=== PATIENT | female | born 1960 | race Caucasian/White ===

== ENCOUNTER → 2016-10-28 | Outpatient (CLI) | payer BC ==
[~2016-10-28] MED LIST: AMLO-114 PO; ASCO500T3 PO; ASPI81TA28 PO; ATOR-24 PO; CARV25TA PO; CHOL100010 PO; CIPR-255 PO; CYAN10004 PO; GLC/500 PO; GLYB3TAB3 PO; LISI40TA PO; MULT-506 PO; PRED10TA PO; PRLSR20 PO; SITA100T3 PO; TOFA1TAB PO; TRAM-10 PO
== END | disposition home or self-care (01) ==
LOC: C.PAPS 10:16
PROVIDERS: ATTEND Obstetrics & Gynecology
DX: Z01.419 Encounter for gynecological examination (general) (routine) without abnormal findings (principal)

== ENCOUNTER → 2016-11-04 | Outpatient (CLI) | payer BC ==
--- NOTE | 2016-11-07 14:29 | MAMMOGRAPHY REPORT ---
BILATERAL DIGITAL SCREENING MAMMOGRAM TOMOSYNTHESIS WITH CAD: 11/04/2016 CLINICAL HISTORY: Routine screening. Patient has no complaints. TECHNIQUE: Breast tomosynthesis in addition to standard 2D mammography was performed. Current study was also evaluated with a Computer Aided Detection (CAD) system. COMPARISON: Comparison is made to exams dated: 08/17/2015 mammogram, 05/22/2013 mammogram - [facility]. BREAST COMPOSITION: There are scattered areas of fibroglandular density in both breasts. FINDINGS: No suspicious masses, calcifications, or areas of architectural distortion are noted in ei ther breast. There has been no significant interval change compared to prior exams. IMPRESSION: ACR BI-RADS CATEGORY 1: NEGATIVE There is no mammographic evidence of malignancy. A 1 year screening mammogram is recommended. The pa tient will receive written notification of the results. Approximately 10% of breast cancers are not detected with mammography. A negative mammographic report should not delay biopsy if a clinically suggestive mass is present. Fátima Zaragoza M.D. ah/:11/04/2016 15:59:08 Derrick [employer]: Kiarra Donohue, [facility] letter sent: Normal 1/2 BI-RADS Code: ACR BI-RADS Category 1: Negative
== END | disposition home or self-care (01) ==
LOC: C.MAMM 14:42
PROVIDERS: ATTEND Family Medicine
DX: Z12.31 Encounter for screening mammogram for malignant neoplasm of breast (principal)

== ENCOUNTER → 2017-03-16 | Outpatient (CLI) | payer BC ==
--- NOTE | 2017-03-16 08:28 | DIAGNOSTIC IMAGING REPORT ---
BILIARY ULTRASOUND CLINICAL HISTORY: ELEVATED LFTS COMPARISON STUDY: CT scan performed December 22, 2015 FINDINGS: The liver is of increased echogenicity, consistent with hepatic steatosis. No focal hepatic masses are visualized. The gallbladder appears sonographically normal. There is no ductal dilatation. The common bile duct measures 5 mm. There was suboptimal visualization of pancreas. There is no right-sided hydronephrosis. IMPRESSION: 1. Increased hepatic echogenicity, consistent with hepatic steatosis 2. No evidence of ductal dilatation 3. Ultrasonographically normal gallbladder 4. Nondiagnostic evaluation of the pancreas Electronically signed by: Gen Alvarado M.D. 03/16/2017 8:26 AM Dictated Date/Time: 03/16/2017 8:24 AM
== END | disposition home or self-care (01) ==
LOC: C.ULTR 07:54
PROVIDERS: ATTEND Internal Medicine Rheumatology
DX: K76.0 Fatty (change of) liver, not elsewhere classified (principal)